=== PATIENT | male | born 1970 | race Caucasian/White ===

== ENCOUNTER 2022-01-08 15:21 | Emergency (ER) | payer BC, SELFPAY ==
--- NOTE | 2022-01-08 17:14 | EXP.UTC ---
Discharge Plan Disposition Patient Disposition: Home, Self-Care Condition: Good Prescriptions Prescriptions: New benzonatate [benzonatate] 100 mg capsule 100 mg PO TIDP PRN (Reason: Cough) Qty: 30 0RF oseltamivir [Tamiflu] 75 mg capsule 75 mg PO BID Qty: 10 0RF ondansetron 4 mg Tablet,Disintegrating 4 mg PO Q8H PRN (Reason: Nausea) Qty: 12 0RF Referrals Follow up/Referrals: Provider,Referral, MD [Primary Care Provider] - See instructions Activity Restrictions/Add. Instructions Additional Instructions/Restrictions: Drink plenty of fluids. Take tylenol or ibuprofen for pain or fever. Take the medications as directed. Follow up with your regular doctor. GO TO THE ER FOR ANY WORSENING SYMPTOMS Clinical Impressions Clinical Impression: Exposure to the flu, Influenza Instructions Patient Instructions: DI for Influenza -- Adult Discharge ED Provider: Luca Parekh [facility] General Stated complaint: fever,cough CARVER Time Seen by Provider: 01/08/22 17:14 History of Present Illness Provider Complaint: He states that since last night he has had fever, chills, body aches, and a dry cough. He has felt bad also. His currently has influenza A. He assumes that is what he has also. He denies any shortness of breath. Related Data Previous Rx's Medication Instructions Recorded benzonatate 100 mg capsule 100 mg PO TIDP PRN Cough #30 caps 01/08/22 ondansetron 4 mg disintegrating 4 mg PO Q8H PRN Nausea #12 tabs 01/08/22 tablet oseltamivir 75 mg capsule (Tamiflu) 75 mg PO BID #10 caps 01/08/22 Allergies Allergy/AdvReac Type Severity Reaction Status Date / Time levofloxacin [From Levaquin] Allergy Verified 01/08/22 17:34 [facility] Disclaimer: The information contained in this section may have been updated after the patient was seen, as this information can be updated by other users. Social History Smoking Status: Former smoker alcohol intake: never current occupational status: employed Travel in the last 8 weeks: None ROS Obtained: Yes All systems reviewed & no additional complaints except as documented Constitutional Constitutional: Reports chills and Reports fever(s) Eyes Eyes: Denies eye discharge ENT Ears, Nose, Mouth, and Throat: Reports as per HPI Cardiovascular Cardiovascular: Denies chest pain Respiratory Respiratory: Denies chest congestion and Reports cough Gastrointestinal Gastrointestingal: Reports nausea; Denies abdominal pain, constipation, cramping, diarrhea or vomiting Musculoskeletal Musculoskeletal: Denies arthralgias Integumentary/Breasts Skin/Breast: Denies rash Neurologic Neurologic: Denies paresthesias Physical Exam General General appearance: alert and in no apparent distress Head Head exam: atraumatic, normocephalic and normal inspection Eye Eye exam: Present normal appearance, PERRL and EOMI ENT ENT exam: Present normal exam, normal oropharynx, mucous membranes moist, TM's normal bilaterally and normal external ear exam Neck Neck exam: Present normal inspection, full ROM and trachea midline; Absent meningismus or lymphadenopathy Chest Chest inspection: Present normal inspection and symmetric chest wall rise; Absent tenderness Respiratory Respiratory exam: Present normal lung sounds bilaterally; Absent respiratory distress Cardiovascular Cardiovascular exam: Present regular rate and normal rhythm; Absent JVD Abdominal Exam Abdominal exam: Present soft and normal bowel sounds; Absent distention, tenderness or guarding Extremities Exam Extremities exam: Present normal inspection, full ROM and normal capillary refill; Absent calf tenderness Back Exam Back exam: Present normal inspection; Absent tenderness Neurological Exam Neurological exam: Present alert and oriented X3 Psychiatric Psychiatric exam: Present normal affect and normal mood Skin Skin exam: Present warm, dry, intact and
[2022-01-08 17:32] VITALS: BP 193/102; PULSE 121; RESP 18; TEMP 37.4; O2SAT 97; BMI 34.2
[2022-01-08 17:48] VITALS: BP 155/78; PULSE 100; RESP 18; TEMP 37.4
== END 2022-01-08 17:52 | disposition home or self-care (01) ==
PROVIDERS: Emergency Provider Nurse Practitioner Family
DX: J11.1 Influenza due to unidentified influenza virus with other respiratory manifestations (principal)
CPT/HCPCS: 99212; G0463

== ENCOUNTER 2022-03-24 11:44 | Emergency (ER) | payer BC, SELFPAY ==
[2022-03-24 11:44] VITALS: BP 138/85; PULSE 92; RESP 20; TEMP 36.9; O2SAT 95; BMI 32.8
--- NOTE | 2022-03-24 12:02 | EXP.UTC ---
Discharge Plan Disposition Patient Disposition: Home, Self-Care Condition: Good Prescriptions Prescriptions: New cephalexin 500 mg capsule 500 mg PO QID Qty: 40 0RF No Action atorvastatin 40 mg tablet 40 mg PO DAILY Label Comments: TAKE 1 TABLET BY MOUTH ONCE DAILY FOR 90 DAYS levothyroxine 50 mcg tablet 50 mcg PO DAILY Label Comments: TAKE 1 TABLET BY MOUTH ONCE DAILY ON AN EMPTY STOMACH IN THE MORNING hydrochlorothiazide 12.5 mg capsule 12.5 mg PO DAILY Label Comments: TAKE 1 CAPSULE BY MOUTH ONCE DAILY IN THE MORNING FOR 90 DAYS lisinopril 2.5 mg tablet 2.5 mg PO DAILY Label Comments: TAKE 1 TABLET BY MOUTH ONCE DAILY dexlansoprazole 60 mg capsule,biphase delayed releas 60 mg PO DAILY Anoro Ellipta 62.5-25 mcg/actuation blister with device 1 ea INHALATION DAILY Referrals Follow up/Referrals: Girish Olmos MD [Primary Care Provider] - See instructions Activity Restrictions/Add. Instructions Additional Instructions/Restrictions: Keep the wound clean and dry. Keep a dressing on it if you are going to be getting it dirty. Watch the wound for signs of infection, such as redness, swelling, drainage, fever. etc. Take tylenol or ibuprofen for pain. Follow up with your regular doctor. Return in 10 days to have the sutures removed. GO TO THE ER FOR ANY WORSENING SYMPTOMS OR CONCERNS. Clinical Impressions Clinical Impression: Laceration of left thumb, Need for Tdap vaccination Instructions Patient Instructions: DI for Laceration Repair -- Simple, DI for Laceration Repair -- Finger, Tetanus, Diphtheria, Pertussis (Tdap) Vaccine Discharge ED Provider: Luca Parekh [facility] General Stated complaint: [id number] cut to left thumb Time Seen by Provider: 03/24/22 12:02 History of Present Illness Provider Complaint: He states that he was using a meal grinder tender on something at his home when it slipped and hit his left thumb. He has a laceration on the lateral aspect of his left thumb. His tetanus immunization is not up to date. Related Data Home Medications Medication Instructions Recorded Confirmed atorvastatin 40 mg tablet 40 mg PO DAILY . 03/24/22 03/24/22 dexlansoprazole 60 mg 60 mg PO DAILY . 03/24/22 03/24/22 capsule,biphase delayed release hydrochlorothiazide 12.5 mg capsule 12.5 mg PO DAILY . 03/24/22 03/24/22 levothyroxine 50 mcg tablet 50 mcg PO DAILY , 03/24/22 03/24/22 lisinopril 2.5 mg tablet 2.5 mg PO DAILY . 03/24/22 03/24/22 umeclidinium 62.5 mcg-vilanterol 1 ea inhalation DAILY . 03/24/22 03/24/22 25 mcg/actuation powdr for inhalation (Anoro Ellipta) Previous Rx's Medication Instructions Recorded cephalexin 500 mg capsule 500 mg PO QID #40 caps 03/24/22 Allergies Allergy/AdvReac Type Severity Reaction Status Date / Time levofloxacin [From Levaquin] Allergy Verified 03/24/22 12:07 [facility] Disclaimer: The information contained in this section may have been updated after the patient was seen, as this information can be updated by other users. Social History Smoking Status: Former smoker alcohol intake: never current occupational status: employed Travel in the last 8 weeks: None ROS Obtained: Yes All systems reviewed & no additional complaints except as documented Constitutional Constitutional: Denies chills and Denies fever(s) Eyes Eyes: Denies eye discharge ENT Ears, Nose, Mouth, and Throat: Denies dizziness, Denies otalgia and Denies sore throat Cardiovascular Cardiovascular: Denies chest pain Respiratory Respiratory: Denies shortness of breath, Denies chest congestion, Denies cough, Denies stridor and Denies wheezing Gastrointestinal Gastrointestingal: Denies nausea or vomiting Musculoskeletal Musculoskeletal: Reports system reviewed and no additional complaints, except as documented and Denies arthralgias Inte
[2022-03-24 13:01] VITALS: BP 138/85; PULSE 92; RESP 20; TEMP 36.9; O2SAT 95
== END 2022-03-24 13:00 | disposition home or self-care (01) ==
PROVIDERS: Emergency Provider Nurse Practitioner Family; PCP Family Medicine
DX: S61.012A Laceration without foreign body of left thumb without damage to nail, initial encounter (principal); W29.3XXA Contact with powered garden and outdoor hand tools and machinery, initial encounter; Z23 Encounter for immunization
CPT/HCPCS: 12001; 90471; 90715; 99212; 99213; G0463

== ENCOUNTER 2023-05-22 11:12 | Emergency (ER) | payer BC, SELFPAY ==
[2023-05-22 11:25] VITALS: BP 139/88; PULSE 86; RESP 19; TEMP 37.1; O2SAT 97; BMI 38.5
--- NOTE | 2023-05-22 11:53 | ED_ITS ---
Discharge Plan Disposition Patient Disposition: Still a Patient Prescriptions Prescriptions: No Action atorvastatin 40 mg tablet 40 mg PO DAILY Patient Comments: TAKE 1 TABLET BY MOUTH ONCE DAILY FOR 90 DAYS levothyroxine 50 mcg tablet 50 mcg PO DAILY Patient Comments: TAKE 1 TABLET BY MOUTH ONCE DAILY ON AN EMPTY STOMACH IN THE MORNING lisinopril 2.5 mg tablet 2.5 mg PO DAILY Patient Comments: TAKE 1 TABLET BY MOUTH ONCE DAILY dexlansoprazole 60 mg capsule,biphase delayed releas 60 mg PO DAILY Anoro Ellipta 62.5-25 mcg/actuation blister with device 1 ea INHALATION DAILY Referrals Follow up/Referrals: Girish Olmos MD [Primary Care Provider] - See instructions [place]charge ED Provider: [place]elle Malagon [facility] [place] Stated complaint: kidney stone pain Mode of Arrival: Ambulatory Source of Information: Patient Limitations: No Limitations Time Seen by Provider: 05/22/23 11:53 Description of Symptoms (Recalled from Triage Doc. by RN): PATIENT C/O RIGHT FLANK PAIN SINCE YESTERDAY HEENT Symptoms (Recalled from RN notes): No Resp Symptoms (Recalled from RN notes): No Skin Symptoms (Recalled from RN notes): No MS Symptoms (Recalled from RN notes): No Functional Status (Recalled from RN notes): WNL History of Present Illness Provider Complaint: Patient states that he started with right flank pain on states that it made him have chills and felt like he may have had a fever states he has a hx of kidney stones and has had to have lithotripsy twice in the past from stones that got stuck and this is the same pain he had then States that yesterday he thought he could mow the grass and the jarring may help it move but the pain got worse so today he came in to get checked worried the stone may be stuck again Related Data Home Medications Medication Instructions Recorded Confirmed atorvastatin 40 mg tablet 40 mg PO DAILY . 03/24/22 05/22/23 dexlansoprazole 60 mg 60 mg PO DAILY . 03/24/22 05/22/23 capsule,biphase delayed release levothyroxine 50 mcg tablet 50 mcg PO DAILY , 03/24/22 05/22/23 lisinopril 2.5 mg tablet 2.5 mg PO DAILY . 03/24/22 05/22/23 umeclidinium 62.5 mcg-vilanterol 1 ea inhalation DAILY . 03/24/22 05/22/23 25 mcg/actuation powdr for inhalation (Anoro Ellipta) Allergies Allergy/AdvReac Type Severity Reaction Status Date / Time levofloxacin [From Levaquin] Allergy Verified 03/24/22 12:07 Worker's Comp Is this a Worker's Comp case?: No [facility] Disclaimer: The information contained in this section may have been updated after the patient was seen, as this information can be updated by other users. Medical History (Updated 05/22/23 @ 11:41 by Iman Hatfield RN) Urinary tract infection Cancer Hyperlipidemia Hypertension Surgical History (Updated 05/22/23 @ 11:41 by Iman Hatfield RN) History of hernia repair History of removal of testicle Social History Smoking Status: Former smoker alcohol intake: never current occupational status: employed Travel in the last 8 weeks: None ROS Obtained: Yes All systems reviewed & no additional complaints except as documented and Yes Systems reviewed as appropriate & no additional complaints except as documented Constitutional Constitutional: Reports system reviewed and no additional complaints, except as documented, Reports as per HPI, Reports chills and Reports fever(s) (felt like he had fever on ) Cardiovascular Cardiovascular: Reports system reviewed and no additional complaints, except as documented and Reports as per HPI Respiratory Respiratory: Reports system reviewed and no additional complaints, except as documented and Reports as per HPI Gastrointestinal Gastrointestingal: Reports system reviewed and no additional complaints, except as documented and as per HPI Genitourinary Male Genitourinary: Reports system reviewed and no additional complaints, except as documented, Reports as per HPI and Reports flank pain (right flank pain since ) Musculoskeletal Musculoskeletal: Reports system reviewed and no additional complaints, except as documented and Reports as per HPI Physical Exam General General appearance: alert and in no apparent distress Respiratory Respiratory exam: Present normal lung sounds bilaterally; Absent respiratory distress or wheezes Cardiovascular Cardiovascular exam: Present regular rate, normal rhythm and normal heart sounds Back Exam Back exam: Present tenderness Back 1 view image: 2 1. reports pain since Denies radiation of pain at this time Neurological Exam Neurological exam: Present alert, oriented X3 and normal gait Medical Decision Making Mao Inquiry Pt receiving controlled substance: No Mao was queried for this patient: No Vital Signs: 04/14/24 11:25 Temperature 98.7 F Temperature Source Oral Pulse Rate [Left Brachial] 86 Respiratory Rate 19 Blood Pressure [Left Arm] 139/88 Blood Pressure Mean [Left Arm] 105 Blood Pressure Source [Left Arm] Automatic Cuff Blood Pressure Position [Left Arm] Sitting 02 Sat by Pulse Oximetry 97 Oxygen Delivery Method Room Air Medical Decision Narrative: Patient reports right flank pain since states pain is like what he had when he had a kidney stone that lodged a few years back and had to have lithotripsy to bust it up Discussed with pt after UA about transfer to the ED for further work up and evaluation and he agreed Called ED awaiting call back reports given patient moved to the ED for further work up and evaluation
[2023-05-22 12:05] LABS: Apearance,Urine Clear (Clear); Bilirubin,Urine Negative (Negative); Blood, Urine Negative (Negative); Color,Urine Dark Yellow (Yellow); Glucose,Urine (UA) Negative (Negative); Ketones,Urine Negative (Negative); Protein,Urine Negative (Negative); UTC Leukocyte Esterase,Urine Negative (Negative); UTC Nitrate,Urine Negative (Negative); Urobilinogen,Urine 0.2 EU/dl (0.2)
[2023-05-22 12:16] VITALS: BP 138/101; PULSE 81; RESP 18; TEMP 37.2; O2SAT 96; BMI 35.3
--- NOTE | 2023-05-22 12:16 | PC.NURSE ---
PATIENT SENT TO ER PER Karine MONZON APRN FOR FURTHER EVALUATION. PATIENT AMBULATED TO ER WITH [facility] STAFF ASSIST
[2023-05-22 12:19] LABS: Microscopic, Urine URINE MICROSCOPIC (MICROSCOPIC)
[2023-05-22 12:30] VITALS: BP 139/90; PULSE 78; O2SAT 96
[2023-05-22 12:34] LABS: Appearance,Urine CLEAR (Clear); Bilirubin,Urine Negative (Negative); Blood, Urine Negative (Negative); Color,Urine YELLOW (Yellow); Glucose,Urine (UA) Negative (Negative); Ketones,Urine Negative (Negative); Leukocyte Esterase,Urine Negative (Negative); Nitrate,Urine Negative (Negative); Protein,Urine Negative (Negative); Urobilinogen,Urine 0.2 EU/dl (0.2)
--- NOTE | 2023-05-22 12:37 | CT_ITS ---
PROCEDURE INFORMATION: Exam: CT Abdomen And Pelvis Without Contrast Exam date and time: 05/22/2023 12:47 PM Age: 53 years old Clinical indication: Abdominal pain; Flank; Right; Additional info: Right flank pain, h/o stone TECHNIQUE: Imaging protocol: Computed tomography of the abdomen and pelvis without contrast. Radiation optimization: All CT scans at this facility use at least one of these dose optimization techniques: automated exposure control; mA and/or kV adjustment per patient size (includes targeted exams where dose is matched to clinical indication); or iterative reconstruction. COMPARISON: No relevant prior studies available. FINDINGS: Lungs: 5 mm pulmonary nodule in the left lower lobe (series 3, image 10 ) Liver: Normal. No mass. Gallbladder and bile ducts: Normal. No calcified stones. No ductal dilation. Pancreas: Normal. No ductal dilation. Spleen: Normal. No splenomegaly. Adrenal glands: Normal. No mass. Kidneys and ureters: Nonobstructing renal calculi bilaterally. No ureteral calculus. Subcentimeter low attenuation area in the right kidney is too small for characterization. Stomach and bowel: Diverticulosis of the rectosigmoid. No diverticulitis Appendix: Normal appendix Intraperitoneal space: Unremarkable. No free air. No significant fluid collection. Vasculature: Unremarkable. No abdominal aortic aneurysm. Lymph nodes: Unremarkable. No enlarged lymph nodes. Urinary bladder: Unremarkable as visualized. Reproductive: Unremarkable as visualized. Bones/joints: Bilateral spondylolysis defect of the L5-S1 level, with grade 1 spondylolisthesis.. Soft tissues: Unremarkable. IMPRESSION: 1. Nonobstructing renal calculi bilaterally. No ureteral calculus. 2. Bilateral spondylolysis defect of the L5-S1 level, with grade 1 spondylolisthesis.. 3 5 mm pulmonary nodule in the left lower lobe (series 3, image 10 )For patients at low risk (minimal or absent history of smoking and of other known risk factors), no routine follow-up is indicated. For patients at high risk (history of smoking or of other known risk factors), consider optional CT Chest at 12 months. (Reference: Cheryl) References: Cheryl Tracy et al. Guidelines for Management of Incidental Pulmonary Nodules Detected on CT Images: From the Fleischner Society 2017. Radiology. 2017;284(1):228-243.
[2023-05-22] MEDS: KETOROLAC 30MG/ML VIAL 15 MG IV (12:42)
--- NOTE | 2023-05-22 12:42 | HMH.EDGENADL ---
Discharge Plan Disposition Patient Disposition: Still a Patient Prescriptions Prescriptions: New ibuprofen 800 mg tablet 800 mg PO TID PRN (Reason: pain) 7 Days Qty: 20 0RF cyclobenzaprine 5 mg tablet 5 mg PO TID PRN (Reason: muscle spasm) 5 Days Qty: 15 0RF No Action atorvastatin 40 mg tablet 40 mg PO DAILY Patient Comments: TAKE 1 TABLET BY MOUTH ONCE DAILY FOR 90 DAYS levothyroxine 50 mcg tablet 50 mcg PO DAILY Patient Comments: TAKE 1 TABLET BY MOUTH ONCE DAILY ON AN EMPTY STOMACH IN THE MORNING lisinopril 2.5 mg tablet 2.5 mg PO DAILY Patient Comments: TAKE 1 TABLET BY MOUTH ONCE DAILY dexlansoprazole 60 mg capsule,biphase delayed releas 60 mg PO DAILY Anoro Ellipta 62.5-25 mcg/actuation blister with device 1 ea INHALATION DAILY Referrals Follow up/Referrals: Girish Olmos MD [Primary Care Provider] - See instructions Activity Restrictions/Add. Instructions Additional Instructions/Restrictions: No evidence of an obstructing kidney stone within the collecting system or alternative explanation for your symptoms aside from musculoskeletal strain. Please follow-up with primary care doctor return to the emergency department any significant worsening of your symptoms. There was a small stone within the kidney itself but this as discussed is not something that causes symptoms. Clinical Impressions Clinical Impression: Acute right flank pain Instructions Patient Instructions: DI for Urinary Tract Infection (UTI), DI for Urinary Tract Infection in Children Discharge ED Provider: Bolivar Bernard General Adult [facility] General Chief complaint: Urogenital-Male Stated complaint: kidney stone pain Time Seen by Provider: 05/22/23 11:53 Mode of Arrival: Ambulatory Source of Information: Patient Limitations: No Limitations Description of Symptoms (Recalled from ER Triage Doc. by RN): r sided back pain History of Present Illness HPI narrative: Patient is a 53-year-old male who was sent over from the urgent treatment clinic for evaluation of possible kidney stone. States has had intermittent right-sided flank pain over the last week that feels very similar to kidney stones he had in the past. He has been diagnosed with 5 or 6 2 of which required lithotripsy. Denies any blood in his urine fevers chills etc. Does state that his pain was worse while riding a lawnmower the last several days. Related Data Home Medications Medication Instructions Recorded Confirmed atorvastatin 40 mg tablet 40 mg PO DAILY . 03/24/22 05/22/23 dexlansoprazole 60 mg 60 mg PO DAILY . 03/24/22 05/22/23 capsule,biphase delayed release levothyroxine 50 mcg tablet 50 mcg PO DAILY , 03/24/22 05/22/23 lisinopril 2.5 mg tablet 2.5 mg PO DAILY . 03/24/22 05/22/23 umeclidinium 62.5 mcg-vilanterol 1 ea inhalation DAILY . 03/24/22 05/22/23 25 mcg/actuation powdr for inhalation (Anoro Ellipta) Previous Rx's Medication Instructions Recorded cyclobenzaprine 5 mg tablet 5 mg PO TID PRN muscle spasm 5 05/22/23 days #15 tabs ibuprofen 800 mg tablet 800 mg PO TID PRN pain 7 days #20 05/22/23 tabs Allergies Allergy/AdvReac Type Severity Reaction Status Date / Time levofloxacin [From Levaquin] Allergy Verified 03/24/22 12:07 [facility] Disclaimer: The information contained in this section may have been updated after the patient was seen, as this information can be updated by other users. Medical History (Updated 05/22/23 @ 12:45 by Bolivar Bernard MD) Urinary tract infection Cancer Hyperlipidemia Hypertension Surgical History (Updated 05/22/23 @ 11:41 by Iman Hatfield RN) History of hernia repair History of removal of testicle Social History Smoking Status: Never smoker alcohol intake: never current occupational status: employed Travel in the last 8 weeks: None ROS Obtained: Yes All systems reviewed & no additional complaints except as documented Physical Exam General General appearance: alert and in no apparent distress Respiratory Respiratory exam: Present normal lung sounds bilaterally Cardiovascular Cardiovascular exam: Present regular rate and normal rhythm Back Exam Back exam: Present other (Right flank/CVA tenderness) Neurological Exam Neurological exam: Present alert and oriented X3 Medical Decision Making Mao Inquiry Pt receiving controlled substance: No Vital Signs: 05/22/23 11:25 05/22/23 12:16 05/22/23 12:30 Temperature 98.7 F 98.9 F Temperature Source Oral Oral Pulse Rate 78 Pulse Rate [Left Brachial] 86 81 Respiratory Rate 19 18 Blood Pressure 139/90 Blood Pressure [Left Arm] 139/88 138/101 H Blood Pressure Mean [Left Arm] 105 113 Blood Pressure Source [Left Arm] Automatic Cuff Blood Pressure Position [Left Arm] Sitting 02 Sat by Pulse Oximetry 97 96 96 Oxygen Delivery Method Room Air Room Air 05/22/23 13:00 Temperature Temperature Source Pulse Rate 75 Pulse Rate [Left Brachial] Respiratory Rate Blood Pressure 153/86 H Blood Pressure [Left Arm] Blood Pressure Mean [Left Arm] Blood Pressure Source [Left Arm] Blood Pressure Position [Left Arm] 02 Sat by Pulse Oximetry 96 Oxygen Delivery Method Room Air Lab Data Lab results reviewed: Yes I reviewed the patient's lab results. Lab Results 05/22/23 11:28: Urine Color Yellow, Urine Appearance Clear, Urine pH 6.0, Ur Specific [place] 1.020, Urine Protein Negative, Urine Glucose (UA) Negative, Urine Ketones Negative, Urine Blood Negative, Urine Nitrate Negative, Urine Bilirubin Negative, Urine Urobilinogen 0.2, Ur Leukocyte Esterase Negative, Urine RBC Occasional, Urine WBC 3-5, Ur Squamous Epith Cells Occasional, Urine Bacteria Trace, Urine Mucus Trace 05/22/23 11:55: Urine Color Dark yellow, Urine Appearance Clear, Urine pH 6.0, Ur Specific [place] 1.030, Urine Protein Negative, Urine Glucose (UA) Negative, Urine Ketones Negative, Urine Blood Negative, Urine Nitrate Negative, Urine Bilirubin Negative, Urine Urobilinogen 0.2, Ur Leukocyte Esterase Negative Orders (Tests/Meds): ED MEDICATIONS Discontinued Medications Generic Name Dose Route Start Last Admin Trade Name Freq PRN Reason Stop Dose Admin Ketorolac Tromethamine 15 mg 05/22/23 12:37 05/22/23 12:42 Ketorolac 30mg/Ml Vial IV 05/22/23 12:38 15 mg ONCE ONE Administration ORDERS Category Date Time Status CT abdomen pelvis wo con Stat Cat Scan 05/22/23 12:37 Taken UA [Urinalysis and Microscopic] Stat Lab 05/22/23 11:28 Completed Medical Decision Narrative: Patient with above history and physical. Does not have any hematuria however he is highly concerned from historical standpoint that he has a recurrent kidney stone. I offered him bedside ultrasound to rule out any type of obstructing uropathy or obstructing kidney stone but he would prefer to go with a CT scan as he has had these in the past and he is concerned that he may need surgical intervention in the past. While it is unlikely that he has a kidney stone without any hematuria it is still possible. More likely though is musculoskeletal strain in this region. Urinalysis was unremarkable from an infectious standpoint. I do not believe this is consistent with pyelonephritis. I am not worried about other emergent medical conditions right now. CT scan performed to person interpreted shows no kidney stone in the collecting system specifically no evidence of hydronephrosis or hydroureter. There is a small stone within the kidney itself but not in the collecting system not causing symptoms. Most likely this is musculoskeletal strain. He was prescribed NSAID and muscle laxer. Radiology still has not read this but if there is any alternative explanation I will call the patient. Critical Care Critical Care Time Critical Care Time: No
[2023-05-22 12:50] LABS: Bacteria,Urine Trace /lpf; Mucus,Urine Trace /lpf; RBC,Urine Occasional #/hpf (0-3); Squamous Epithelial Cell,Urine Occasional #/hpf (0-5)
[2023-05-22 13:00] VITALS: BP 153/86; PULSE 75; O2SAT 96
[2023-05-22 13:20] VITALS: BP 153/86; PULSE 75; RESP 16; TEMP 36.7
== END 2023-05-22 13:21 | disposition home or self-care (01) ==
LOC: UTC 12:14 → ER 12:15
PROVIDERS: Nurse Practitioner; Emergency Provider Student in an Organized Health Care Education/Training Program; PCP Family Medicine
DX: R10.31 Right lower quadrant pain (principal); M54.59 Other low back pain; I10 Essential (primary) hypertension; E78.5 Hyperlipidemia, unspecified; Z87.442 Personal history of urinary calculi
CPT/HCPCS: 74176; 81001; 81003; 96374; 99284

== ENCOUNTER 2024-01-10 11:36 | Emergency (ER) | payer BC, SELFPAY ==
[2024-01-10 11:52] VITALS: BP 169/98; PULSE 112; RESP 19; TEMP 37.2; O2SAT 98; BMI 36.1
--- NOTE | 2024-01-10 12:08 | ED_ITS ---
Discharge Plan Disposition Patient Disposition: Home, Self-Care Condition: Good Prescriptions Prescriptions: New guaifenesin [Mucinex] 1,200 mg tablet extended release 12hr 1,200 mg PO Q12H PRN (Reason: congestion) Qty: 20 0RF azithromycin [Zithromax Z-Axel] 250 mg tablet See Rx Instructions .ROUTE .COMPLEX 5 Days Qty: 6 0RF Rx Instructions: For 250 mg dose pack: take 500 mg today (day 1), then 250 mg for 4 days (days 2-5) methylprednisolone [Medrol (Axel)] 4 mg tablets,dose pack See Rx Instructions .Route .COMPLEX 6 Days Qty: 21 0RF Rx Instructions: taper pack; No Action atorvastatin 40 mg tablet 40 mg PO DAILY Patient Comments: TAKE 1 TABLET BY MOUTH ONCE DAILY FOR 90 DAYS levothyroxine 50 mcg tablet 50 mcg PO DAILY Patient Comments: TAKE 1 TABLET BY MOUTH ONCE DAILY ON AN EMPTY STOMACH IN THE MORNING lisinopril 2.5 mg tablet 2.5 mg PO DAILY Patient Comments: TAKE 1 TABLET BY MOUTH ONCE DAILY Anoro Ellipta 62.5-25 mcg/actuation blister with device 1 ea INHALATION DAILY Referrals Follow up/Referrals: Girish Olmos MD [Primary Care Provider] - See instructions Activity Restrictions/Add. Instructions Additional Instructions/Restrictions: *Monitor Temp, Over the counter Motrin or Tylenol as directed/as needed Tylenol every 4 hours and Motrin every 6 hours (as long as your family doctor has told you that you can take it) for fever or pain. and straight to ER if unable to lower temp less than 101.0 after medication given *Warm salt water gargles may help to soothe the throat *Throat Lozenges? *Warm fluids like tea with honey may help to soothe the throat? *Sleep elevated *Humidifier/Vaporizer Take medication as prescribed Follow up IMMEDIATELY for new or worsening symptoms or no Noticeable improvement over the next 48-72 hours. 911 for difficulty breathing or swallowing Clinical Impressions Clinical Impression: Sinusitis Instructions Patient Instructions: DI for Sinusitis, Acute Bronchitis Print Language Print Language: Monegasque Discharge ED Provider: hCanelle Malagon [facility] General Stated complaint: head congestion Mode of Arrival: Ambulatory Source of Information: Patient Time Seen by Provider: 01/10/24 12:09 Description of Symptoms (Recalled from Triage Doc. by RN): CONGESTION, SNEZZING, ACHY, CARVER, SOB HEENT Symptoms (Recalled from RN notes): Yes Resp Symptoms (Recalled from RN notes): Yes Skin Symptoms (Recalled from RN notes): No MS Symptoms (Recalled from RN notes): No Functional Status (Recalled from RN notes): WNL History of Present Illness Provider Complaint: Patient states that he has been having sinus pain and pressure for over a week and feels like it is trying to move into his chest States that he has black lung and tries to come in and get something before it gets too bad states he is coughing up some mucous at times but today he is having pressure like feeling in his ears so he came in to get checked before it got too bad Related Data Home Medications ?Medication ?Instructions ?Recorded ?Confirmed atorvastatin 40 mg tablet 40 mg PO DAILY . 03/24/22 01/10/24 levothyroxine 50 mcg tablet 50 mcg PO DAILY , 03/24/22 01/10/24 lisinopril 2.5 mg tablet 2.5 mg PO DAILY . 03/24/22 01/10/24 umeclidinium 62.5 mcg-vilanterol 1 ea inhalation DAILY . 03/24/22 01/10/24 25 mcg/actuation powdr for inhalation (Anoro Ellipta) Previous Rx's ?Medication ?Instructions ?Recorded azithromycin 250 mg tablet See Rx Instructions PO .COMPLEX 5 01/10/24 (Zithromax Z-Axel) days #6 tabs guaifenesin 1,200 mg tablet, 1,200 mg PO Q12H PRN congestion 01/10/24 extended release 12 hr (Mucinex) #20 tabs methylprednisolone 4 mg tablets in See Rx Instructions .Route 01/10/24 a dose pack (Medrol (Axel)) .COMPLEX 6 days #21 tabs Allergies Allergy/AdvReac Type Severity Reaction Status Date / Time levofloxacin (From Levaquin) Allergy Verified 03/24/22 12:07 Worker's Comp Is this a Worker's Comp case?: No PFS PFS Disclaimer: The information contained in this section may have been updated after the patient was seen, as this information can be updated by other users. Medical History (Updated 01/10/24 @ 12:21 by Chanelle Malagon APRN) Urinary tract infection Cancer Hyperlipidemia Hypertension Surgical History (Updated 05/22/23 @ 11:41 by Iman Hatfield RN) History of hernia repair History of removal of testicle Social History Smoking Status: Never smoker alcohol intake: never current occupational status: employed Travel in the last 8 weeks: None ROS Obtained: Yes All systems reviewed & no additional complaints except as documented and Yes Systems reviewed as appropriate & no additional complaints except as documented Constitutional Constitutional: Reports system reviewed and no additional complaints, except as documented and Reports as per HPI Eyes Eyes: Reports system reviewed and no additional complaints, except as documented and Reports as per HPI ENT Ears, Nose, Mouth, and Throat: Reports system reviewed and no additional complaints, except as documented, Reports as per HPI, Reports sinus pain and Reports sinus pressure Cardiovascular Cardiovascular: Reports system reviewed and no additional complaints, except as documented and Reports as per HPI Respiratory Respiratory: Reports system reviewed and no additional complaints, except as documented, Reports as per HPI, Reports shortness of breath (on and off but has that at times), Reports chest congestion and Reports cough Gastrointestinal Gastrointestingal: Reports system reviewed and no additional complaints, except as documented and as per HPI Musculoskeletal Musculoskeletal: Reports system reviewed and no additional complaints, except as documented and Reports as per HPI Integumentary/Breasts Skin/Breast: Reports system reviewed and no additional complaints, except as documented and Reports as per HPI Neurologic Neurologic: Reports system reviewed and no additional complaints, except as documented and Reports as per HPI Physical Exam General General appearance: alert and in no apparent distress ENT ENT exam: Present mucous membranes moist Expanded ENT Exam Nose exam: Present sinus tenderness Throat exam: Present other (PND noted) Respiratory Respiratory exam: Present normal lung sounds bilaterally; Absent respiratory distress or wheezes Cardiovascular Cardiovascular exam: Present regular rate, normal rhythm and normal heart sounds Neurological Exam Neurological exam: Present alert, oriented X3 and normal gait Medical Decision Making Medical Records Screening: Per USPSTF and CDC recommendations, given the prevalence of disease in our region, it is our hospital?s policy to screen for HIV and viral Hepatitis for all patients aged 18 and over and those with ongoing risk factors. Mao Inquiry Pt receiving controlled substance: No Mao was queried for this patient: No Vital Signs: 01/10/24 11:52 Temperature 99.0 F Temperature Source Oral Pulse Rate [Left Radial] 112 H Respiratory Rate 19 Blood Pressure [Left Arm] 169/98 H Blood Pressure Mean [Left Arm] 121 02 Sat by Pulse Oximetry 98 Lab Data Lab results reviewed: Yes I reviewed the patient's lab results.
[2024-01-10 12:09] LABS: UTC Influenza A Antigen Negative (Negative); UTC Influenza B Antigen Negative (Negative)
[2024-01-10 12:26] VITALS: BP 169/98; PULSE 112; RESP 19; TEMP 37.2
== END 2024-01-10 12:30 | disposition home or self-care (01) ==
PROVIDERS: Emergency Provider Nurse Practitioner; PCP Family Medicine
DX: J32.9 Chronic sinusitis, unspecified (principal); R06.02 Shortness of breath; R09.81 Nasal congestion; R51.9 Headache, unspecified; M79.10 Myalgia, unspecified site; R06.7 Sneezing
CPT/HCPCS: 87804; 99212; G0381